=== PATIENT | female | born 1945 | race Caucasian/White ===

== ENCOUNTER → 2023-07-02 | Outpatient (CLI) | payer MEDICARE, OTHER | END | disposition home or self-care (01) | LOC: LABWHC1 10:00 | PROVIDERS: ATTEND Dermatology MOHS-Micrographic Surgery | DX: L92.0 Granuloma annulare (principal) | CPT/HCPCS: 36415; 82955 ==

== ENCOUNTER → 2023-10-08 | Outpatient (CLI) | payer MEDICARE ==
[2023-10-08 19:24] LABS: Basophils # (A) 0.04 X 10*3/uL (0.00-0.10); Basophils % (A) 0.8 %; Eosinophils # (A) 0.13 X 10*3/uL (0.04-0.35); Eosinophils % (A) 2.6 %; HCT 43.1 % (37.2-46.3); Immature Platelet Fraction 27.7 % (1.1-6.1); Lymphocytes # (A) 1.43 X 10*3/uL (0.90-5.00); Lymphocytes % (A) 28.6 %; MCH 29.8 pg (27.0-32.0); MCHC 32.5 g/dL (32.0-37.0); MCV 91.7 FL (80.0-97.0); Mean Platelet Volume 13.1 FL (9.5-12.2); Monocytes # (A) 0.53 X 10*3/uL (0.20-1.00); Monocytes % (A) 10.6 %; NRBC Per 100 WBC 0 X 10*3/uL (0.00-0.01); Neutrophils # (A) 2.86 X 10*3/uL (1.80-7.70); Neutrophils % (A) 57.2 %; Platelet Count 54 X 10*3/uL (140-440); RDW 14.4 % (11.5-14.5)
== END | disposition home or self-care (01) ==
LOC: LABWHC1 14:58
PROVIDERS: ATTEND Student in an Organized Health Care Education/Training Program
DX: L92.0 Granuloma annulare (principal); L20.89 Other atopic dermatitis; L29.8 Other pruritus; Z79.899 Other long term (current) drug therapy
CPT/HCPCS: 36415; 85025